=== PATIENT | male | born 1945 | race Caucasian/White ===

== ENCOUNTER → 2019-03-04 | Outpatient (CLI) | payer MEDICARE ==
[~2019-03-04] MED LIST: ADVA1AER2 INH; AMIO200T PO; BISO2.5T PO; CIPR250T2 PO; CIPR500T3 PO; COMBIN INH; DILT180C7 PO; MULTTAB4 PO; OXYC1TAB23 OR; SIMV10TA2 PO; TAMS0.4C PO; XARE20TA PO
--- NOTE | 2019-03-04 16:44 | REP ---
Chest x-ray: Two views. History: COPD. Comparison study: March 14, 2013. 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 There is plate-like atelectasis versus linear fibrosis in the left mid lung zone. This appears to be a new finding from the 2012 study. Lung willis are otherwise clear. The pleural angles are sharp. Heart is not enlarged. There are mild degenerative changes in the thoracic spine. Impression: Linear plate-like atelectasis versus fibrosis on the left. Mild hyperinflation. Otherwise no acute disease. Electronically Signed by Albino Nunes MD 03/04/2019 05:25 P
== END ==
LOC: M SMT 15:05
PROVIDERS: ATTEND Internal Medicine Pulmonary Disease
DX: J44.9 Chronic obstructive pulmonary disease, unspecified (principal)

== ENCOUNTER → 2021-09-27 | Outpatient (CLI) | payer MEDICARE | LOC: M PLARAD 07:43 | PROVIDERS: ATTEND Internal Medicine Cardiovascular Disease | DX: R91.8 Other nonspecific abnormal finding of lung field (principal); I65.23 Occlusion and stenosis of bilateral carotid arteries; J98.4 Other disorders of lung; I70.0 Atherosclerosis of aorta; I25.10 Atherosclerotic heart disease of native coronary artery without angina pectoris; Z95.0 Presence of cardiac pacemaker; K57.90 Diverticulosis of intestine, part unspecified, without perforation or abscess without bleeding | CPT/HCPCS: 78815; A9552 ==

== ENCOUNTER 2022-01-06 11:26 | Inpatient (IN) | payer MEDICARE ==
[~2022-01-06] VITALS: Ht 167.6 cm; Wt 117.5 kg
[2022-01-06 16:38] VITALS: BP 191/91
[2022-01-06] MEDS ORDERED: FUROSEMIDE 40MG/4ML VIAL (J1940) IV ONE (17:20)
[2022-01-06] MEDS ORDERED: ACETAMINOPHEN TAB 650MG DOSE (2X325MG) PO PRN (17:20)
[2022-01-06 17:25] LABS: HEMATOCRIT 37.5 % (42.0-52.0); HEMOGLOBIN 12.8 g/dl (13.5-17.5); MEAN CORPUSCULAR HEMOGLOBIN 31.3 pg (27.0-33.0); MEAN CORPUSCULAR HGB CONC 34.1 g/dl (32.0-36.5); MEAN CORPUSCULAR VOLUME 91.7 fl (80.0-96.0); RED BLOOD COUNT 4.09 10^6/uL (4.30-6.10); WHITE BLOOD COUNT 18.8 10^3/uL (4.0-10.0)
[2022-01-06 17:26] LABS: BASO % 0.1 % (0.0-1.0); LYMPH # 0.4 10^3/uL (1.5-5.0); MONO % 5.4 % (2.0-8.0); NEUTROPHILS # 16.8 10^3/uL (1.5-8.5); NEUTROPHILS % 89.2 % (36.0-66.0); PLATELET COUNT, AUTOMATED 261 10^3/uL (150-450)
[2022-01-06 17:44] LABS: INR 1.54; PROTHROMBIN TIME 18.9 SECONDS (12.7-14.5)
[2022-01-06 17:45] LABS: PARTIAL THROMBOPLASTIN TIME 26.1 SECONDS (25.9-37.0)
[2022-01-06 17:53] LABS: ERYTHROCYTE SEDIMENTATION RATE 5 mm/hr (0-20)
[2022-01-06 18:06] LABS: ALBUMIN 3.3 GM/DL (3.2-5.2); BILIRUBIN,TOTAL 0.9 MG/DL (0.2-1.0); C REACTIVE PROTEIN QUANTITATIV 0.3 MG/DL (0.00-0.30); CALCIUM LEVEL 8.1 MG/DL (8.8-10.2); CREATININE FOR GFR 1.52 MG/DL (0.70-1.30); GLOMERULAR FILTRATION RATE 47.7 (>42); MAGNESIUM LEVEL 2.6 MG/DL (1.8-2.4); THYROID STIMULATING HORMONE 0.174 uIU/ML (0.358-3.740); TOTAL PROTEIN 6.2 GM/DL (6.4-8.2)
[2022-01-06 18:27] LABS: CK-MB VALUE MASS 11.7 NG/ML (<3.6); MB/CK RELATIVE INDEX 0.96 (< OR =4)
[2022-01-06] MEDS: IPRATROPIUM 0.5MG/ALBUTEROL 2.5MG INH SOL UD 3ML (DUONEB) NEB SCH (19:23)
[2022-01-06] MEDS ORDERED: SIMV10TA21 PO (19:43)
[2022-01-06] MEDS ORDERED: METO1TAB33 PO (19:43)
[2022-01-06] MEDS ORDERED: TREL1AER PO (19:43)
[2022-01-06] MEDS ORDERED: XARE20TA PO (19:43)
[2022-01-06] MEDS ORDERED: LEXA1TAB2 PO (19:43)
[2022-01-06] MEDS ORDERED: DILT240C83 PO (19:43)
[2022-01-06] MEDS ORDERED: BREO1INH3 INH (19:47)
[2022-01-06] MEDS ORDERED: TOPR50TA PO (19:51)
[2022-01-06] MEDS ORDERED: HOME MED LIST COMPLETE! XX SCH (19:55)
[2022-01-06 20:00] VITALS: BP 134/81
[2022-01-06 20:28] LABS: HEMOGLOBIN A1c 6.9 %
[2022-01-06] MEDS: methylPREDNISolone 125MG 2ML VIAL IV SCH (20:42)
[2022-01-06] MEDS: PIPERACILLIN/TAZOBACTAM SOD 3.375 GM in D5W MINI-BAG PLUS 50 ML IV SCH (20:43)
[2022-01-06] MEDS ORDERED: METOPROLOL SUCC (TopROL XL) 50MG **XL** TAB PO SCH (21:00)
[2022-01-06] MEDS: ADVAIR HFA 230/21MCG INHALER INH SCH (23:23)
[2022-01-07] VITALS (12 sets, daily range): BP systolic 125–140; BP diastolic 63–85; O2SAT 90–96
[2022-01-07] MEDS: IPRATROPIUM 0.5MG/ALBUTEROL 2.5MG INH SOL UD 3ML (DUONEB) NEB SCH ×4 (01:33→19:13)
[2022-01-07] MEDS: BENZONATATE 100MG CAPSULE PO PRN (02:43)
[2022-01-07] MEDS: methylPREDNISolone 125MG 2ML VIAL IV SCH ×3 (02:44→21:00)
[2022-01-07] MEDS: PIPERACILLIN/TAZOBACTAM SOD 3.375 GM in D5W MINI-BAG PLUS 50 ML IV SCH (02:44)
[2022-01-07 05:48] LABS: HEMATOCRIT 37.6 % (42.0-52.0); HEMOGLOBIN 12.8 g/dl (13.5-17.5); MEAN CORPUSCULAR HEMOGLOBIN 31.2 pg (27.0-33.0); MEAN CORPUSCULAR VOLUME 91.7 fl (80.0-96.0); PLATELET COUNT, AUTOMATED 208 10^3/uL (150-450); WHITE BLOOD COUNT 15.1 10^3/uL (4.0-10.0)
[2022-01-07 06:23] LABS: CALCIUM LEVEL 8.1 MG/DL (8.8-10.2); CREATININE FOR GFR 1.37 MG/DL (0.70-1.30); GLOMERULAR FILTRATION RATE 53.8 (>42); MAGNESIUM LEVEL 2.7 MG/DL (1.8-2.4)
[2022-01-07] MEDS ORDERED: GLUCOSE 4GM CHEW TABLET PO PRN (07:20)
[2022-01-07] MEDS ORDERED: DEXTROSE 50% 50 ML SYRINGE IV PRN (07:20)
[2022-01-07] MEDS ORDERED: GLUCAGON INJ 1MG VIAL SC PRN (07:20)
[2022-01-07] MEDS: ADVAIR HFA 230/21MCG INHALER INH SCH ×2 (07:30→19:12)
[2022-01-07] MEDS: INSULIN LISPRO (NovoLOG) PER UNIT SC SCH ×4 (08:29→20:56)
[2022-01-07] MEDS: RIVAROXABAN 20 MG TAB (XARELTO) PO SCH (08:30)
[2022-01-07] MEDS ORDERED: METOPROLOL TART 25 MG TABLET PO ONE (08:30)
[2022-01-07] MEDS: SIMVASTATIN 10 MG TAB PO SCH (08:30)
[2022-01-07 08:38] LABS: BASO % 0.2 % (0.0-1.0); LYMPH # 0.2 10^3/uL (1.5-5.0); LYMPH % 1.6 % (24.0-44.0); MONO # 0.7 10^3/uL (0.0-0.8); MONO % 4.2 % (2.0-8.0); NEUTROPHILS # 14.1 10^3/uL (1.5-8.5); NEUTROPHILS % 91.8 % (36.0-66.0)
[2022-01-07] MEDS ORDERED: FUROSEMIDE 40MG/4ML VIAL (J1940) IV SCH (09:00)
[2022-01-07 10:48] LABS: ABG HCO3 28.9 MEQ/L (22.0-26.0); ABG O2 SATURATION 92.8 % (95.0-99.0); ABG PARTIAL PRESSURE CO2 36.3 mmHg (35.0-45.0); ABG PARTIAL PRESSURE O2 64.2 mmHg (75.0-100.0); ABG STANDARD HCO3 29.7 MEQ/L (22.0-26.0); ABG pH (ARTERIAL) 7.519 UNITS (7.350-7.450)
[2022-01-07] MEDS: ALBUTEROL SULFATE 2.5 MG/0.5 ML INH NEB SOLN NEB PRN (15:03)
[2022-01-07] MEDS: METOPROLOL TART 25 MG TABLET PO SCH ×2 (17:25→23:25)
[2022-01-08] VITALS (22 sets, daily range): BP systolic 119–168; BP diastolic 60–103; O2SAT 90–94
[2022-01-08] MEDS: IPRATROPIUM 0.5MG/ALBUTEROL 2.5MG INH SOL UD 3ML (DUONEB) NEB SCH ×4 (01:15→19:35)
[2022-01-08] MEDS: ALBUTEROL SULFATE 2.5 MG/0.5 ML INH NEB SOLN NEB PRN (03:40)
[2022-01-08] MEDS: methylPREDNISolone 125MG 2ML VIAL IV SCH ×2 (04:05→12:12)
[2022-01-08] MEDS: METOPROLOL TART 25 MG TABLET PO SCH ×4 (05:24→23:40)
[2022-01-08 06:13] LABS: HEMATOCRIT 36.7 % (42.0-52.0); HEMOGLOBIN 12.3 g/dl (13.5-17.5); MEAN CORPUSCULAR HEMOGLOBIN 31.1 pg (27.0-33.0); MEAN CORPUSCULAR HGB CONC 33.5 g/dl (32.0-36.5); MEAN CORPUSCULAR VOLUME 92.7 fl (80.0-96.0); PLATELET COUNT, AUTOMATED 165 10^3/uL (150-450); RED BLOOD COUNT 3.96 10^6/uL (4.30-6.10); WHITE BLOOD COUNT 15.2 10^3/uL (4.0-10.0)
[2022-01-08 06:45] LABS: ALBUMIN 3.1 GM/DL (3.2-5.2); ALT/SGPT 197 U/L (12-78); BILIRUBIN,DIRECT 0.6 MG/DL (0.0-0.2); BILIRUBIN,TOTAL 1.2 MG/DL (0.2-1.0); BLOOD UREA NITROGEN 38 MG/DL (7-18); CALCIUM LEVEL 8.2 MG/DL (8.8-10.2); CARBON DIOXIDE LEVEL 34 MEQ/L (21-32); CHLORIDE LEVEL 99 MEQ/L (98-107); CREATININE FOR GFR 1.14 MG/DL (0.70-1.30); GLOMERULAR FILTRATION RATE > 60.0 (>42); GLUCOSE, FASTING 215 MG/DL (70-100); MAGNESIUM LEVEL 2.6 MG/DL (1.8-2.4); POTASSIUM SERUM 3.9 MEQ/L (3.5-5.1); SODIUM LEVEL 137 MEQ/L (136-145); TOTAL PROTEIN 5.5 GM/DL (6.4-8.2)
[2022-01-08] MEDS: ADVAIR HFA 230/21MCG INHALER INH SCH ×2 (07:16→19:36)
[2022-01-08 07:30] LABS: BASO % 0.1 % (0.0-1.0); LYMPH # 0.2 10^3/uL (1.5-5.0); LYMPH % 1.1 % (24.0-44.0); MONO # 0.6 10^3/uL (0.0-0.8); MONO % 3.6 % (2.0-8.0); NEUTROPHILS # 14.3 10^3/uL (1.5-8.5); NEUTROPHILS % 93.6 % (36.0-66.0)
[2022-01-08] MEDS: INSULIN LISPRO (NovoLOG) PER UNIT SC SCH ×4 (08:46→21:00)
[2022-01-08] MEDS: RIVAROXABAN 20 MG TAB (XARELTO) PO SCH (08:47)
[2022-01-08] MEDS: SIMVASTATIN 10 MG TAB PO SCH (08:47)
[2022-01-08 17:07] LABS: MYCOPLASMA PNEUMONIAE IgG 440 U/mL (0-99); MYCOPLASMA PNEUMONIAE IgM <770 U/mL (0-769)
[2022-01-08] MEDS: MAGIC MOUTHWASH SUSPENSION BTL SS PRN (17:55)
[2022-01-08] MEDS: methylPREDNISolone 40MG 1ML VIAL IV SCH (23:40)
[2022-01-09] VITALS (16 sets, daily range): BP systolic 127–174; BP diastolic 63–92; O2SAT 88–96
[2022-01-09] MEDS: IPRATROPIUM 0.5MG/ALBUTEROL 2.5MG INH SOL UD 3ML (DUONEB) NEB SCH ×4 (01:42→19:44)
[2022-01-09] MEDS: METOPROLOL TART 25 MG TABLET PO SCH ×3 (05:31→17:14)
[2022-01-09] MEDS: MAGIC MOUTHWASH SUSPENSION BTL SS PRN (05:36)
[2022-01-09 06:16] LABS: HEMATOCRIT 36.7 % (42.0-52.0); HEMOGLOBIN 12.2 g/dl (13.5-17.5); MEAN CORPUSCULAR HEMOGLOBIN 30.7 pg (27.0-33.0); MEAN CORPUSCULAR HGB CONC 33.2 g/dl (32.0-36.5); MEAN CORPUSCULAR VOLUME 92.4 fl (80.0-96.0); PLATELET COUNT, AUTOMATED 153 10^3/uL (150-450); RED BLOOD COUNT 3.97 10^6/uL (4.30-6.10); WHITE BLOOD COUNT 24.3 10^3/uL (4.0-10.0)
[2022-01-09 06:42] LABS: BLOOD UREA NITROGEN 37 MG/DL (7-18); CALCIUM LEVEL 8.9 MG/DL (8.8-10.2); CARBON DIOXIDE LEVEL 31 MEQ/L (21-32); CHLORIDE LEVEL 102 MEQ/L (98-107); CREATININE FOR GFR 1.15 MG/DL (0.70-1.30); GLOMERULAR FILTRATION RATE > 60.0 (>42); GLUCOSE, FASTING 235 MG/DL (70-100); MAGNESIUM LEVEL 2.6 MG/DL (1.8-2.4); POTASSIUM SERUM 4.5 MEQ/L (3.5-5.1); SODIUM LEVEL 139 MEQ/L (136-145)
[2022-01-09] MEDS: INSULIN LISPRO (NovoLOG) PER UNIT SC SCH ×4 (07:37→20:03)
[2022-01-09] MEDS: ADVAIR HFA 230/21MCG INHALER INH SCH ×2 (07:46→19:43)
[2022-01-09] MEDS: RIVAROXABAN 20 MG TAB (XARELTO) PO SCH (09:19)
[2022-01-09] MEDS: SIMVASTATIN 10 MG TAB PO SCH (09:19)
[2022-01-09] MEDS ORDERED: FUROSEMIDE 20MG/2ML VIAL (J1940) IV ONE (09:55)
[2022-01-09] MEDS: methylPREDNISolone 40MG 1ML VIAL IV SCH (11:25)
[2022-01-10] VITALS (18 sets, daily range): BP systolic 118–142; BP diastolic 69–92; O2SAT 89–100
[2022-01-10] MEDS: METOPROLOL TART 25 MG TABLET PO SCH ×5 (00:09→23:43)
[2022-01-10] MEDS: BENZONATATE 100MG CAPSULE PO PRN (00:09)
[2022-01-10] MEDS: IPRATROPIUM 0.5MG/ALBUTEROL 2.5MG INH SOL UD 3ML (DUONEB) NEB SCH ×4 (02:37→19:53)
[2022-01-10 06:23] LABS: HEMATOCRIT 34.3 % (42.0-52.0); HEMOGLOBIN 11.4 g/dl (13.5-17.5); MEAN CORPUSCULAR HEMOGLOBIN 31.7 pg (27.0-33.0); MEAN CORPUSCULAR HGB CONC 33.2 g/dl (32.0-36.5); MEAN CORPUSCULAR VOLUME 95.3 fl (80.0-96.0); PLATELET COUNT, AUTOMATED 150 10^3/uL (150-450)
[2022-01-10 06:26] LABS: WHITE BLOOD COUNT 30.9 10^3/uL (4.0-10.0)
[2022-01-10 06:43] LABS: BLOOD UREA NITROGEN 34 MG/DL (7-18); CALCIUM LEVEL 8.5 MG/DL (8.8-10.2); CARBON DIOXIDE LEVEL 35 MEQ/L (21-32); CHLORIDE LEVEL 100 MEQ/L (98-107); CREATININE FOR GFR 1.12 MG/DL (0.70-1.30); GLOMERULAR FILTRATION RATE > 60.0 (>42); GLUCOSE, FASTING 214 MG/DL (70-100); MAGNESIUM LEVEL 2.3 MG/DL (1.8-2.4); POTASSIUM SERUM 4.4 MEQ/L (3.5-5.1); SODIUM LEVEL 136 MEQ/L (136-145)
[2022-01-10 07:37] LABS: BASO # 0.1 10^3/uL (0.0-0.2); BASO % 0.2 % (0.0-1.0); LYMPH # 0.5 10^3/uL (1.5-5.0); LYMPH % 1.6 % (24.0-44.0); MONO # 1.2 10^3/uL (0.0-0.8); MONO % 3.7 % (2.0-8.0); NEUTROPHILS # 28.7 10^3/uL (1.5-8.5); NEUTROPHILS % 92.7 % (36.0-66.0)
[2022-01-10] MEDS: RIVAROXABAN 20 MG TAB (XARELTO) PO SCH (08:25)
[2022-01-10] MEDS: SIMVASTATIN 10 MG TAB PO SCH (08:25)
[2022-01-10] MEDS: predniSONE 20 MG TAB PO SCH (08:25)
[2022-01-10] MEDS: INSULIN LISPRO (NovoLOG) PER UNIT SC SCH ×4 (08:26→20:21)
[2022-01-10] MEDS: DOCUSATE SODIUM 100MG CAPSULE PO PRN (08:26)
[2022-01-10] MEDS: ADVAIR HFA 230/21MCG INHALER INH SCH ×2 (08:28→19:54)
[2022-01-10] MEDS ORDERED: ISOVUE-370 76% 100ML VIAL As Ordered ONE (09:13)
[2022-01-10] MEDS: PIPERACILLIN/TAZOBACTAM SOD 4.5 GM in D5W MINI-BAG PLUS 50 ML IV SCH ×3 (13:45→23:43)
[2022-01-10 16:10] LABS: CHLAMYDIA PNEUMONIAE IgM <1:10 (Neg:<1:10)
[2022-01-10] MEDS ORDERED: NYSTATIN 500,000 U/5 ML SUSP UDC SS SCH (18:00)
[2022-01-11] VITALS (24 sets, daily range): BP systolic 97–149; BP diastolic 63–77; O2SAT 86–96
[2022-01-11] MEDS: IPRATROPIUM 0.5MG/ALBUTEROL 2.5MG INH SOL UD 3ML (DUONEB) NEB SCH ×4 (00:57→20:00)
[2022-01-11] MEDS: DOCUSATE SODIUM 100MG CAPSULE PO PRN (03:56)
[2022-01-11] MEDS: ALBUTEROL SULFATE 2.5 MG/0.5 ML INH NEB SOLN NEB PRN (04:29)
[2022-01-11] MEDS: PIPERACILLIN/TAZOBACTAM SOD 4.5 GM in D5W MINI-BAG PLUS 50 ML IV SCH (05:35)
[2022-01-11] MEDS: METOPROLOL TART 25 MG TABLET PO SCH ×2 (05:35→11:44)
[2022-01-11 06:27] LABS: HEMATOCRIT 30.1 % (42.0-52.0); MEAN CORPUSCULAR HEMOGLOBIN 31.7 pg (27.0-33.0); MEAN CORPUSCULAR HGB CONC 33.2 g/dl (32.0-36.5); MEAN CORPUSCULAR VOLUME 95.6 fl (80.0-96.0); PLATELET COUNT, AUTOMATED 128 10^3/uL (150-450); RED BLOOD COUNT 3.15 10^6/uL (4.30-6.10); WHITE BLOOD COUNT 22.2 10^3/uL (4.0-10.0)
[2022-01-11 06:43] LABS: BLOOD UREA NITROGEN 41 MG/DL (7-18); CALCIUM LEVEL 8.3 MG/DL (8.8-10.2); CARBON DIOXIDE LEVEL 34 MEQ/L (21-32); CHLORIDE LEVEL 100 MEQ/L (98-107); CREATININE FOR GFR 1.16 MG/DL (0.70-1.30); GLOMERULAR FILTRATION RATE > 60.0 (>42); GLUCOSE, FASTING 190 MG/DL (70-100); MAGNESIUM LEVEL 2.2 MG/DL (1.8-2.4); SODIUM LEVEL 140 MEQ/L (136-145)
[2022-01-11 08:03] LABS: BASO % 0.1 % (0.0-1.0); EOS % 0.1 % (0.0-3.0); LYMPH # 0.4 10^3/uL (1.5-5.0); MONO % 4.4 % (2.0-8.0); NEUTROPHILS # 20.2 10^3/uL (1.5-8.5); NEUTROPHILS % 91.9 % (36.0-66.0)
[2022-01-11 08:05] LABS: PLATELET ESTIMATE NORMAL (NORMAL)
[2022-01-11] MEDS: ADVAIR HFA 230/21MCG INHALER INH SCH ×2 (08:41→20:15)
[2022-01-11] MEDS: predniSONE 20 MG TAB PO SCH (09:00)
[2022-01-11] MEDS: SIMVASTATIN 10 MG TAB PO SCH (09:00)
[2022-01-11] MEDS: INSULIN LISPRO (NovoLOG) PER UNIT SC SCH ×4 (09:01→20:27)
[2022-01-11] MEDS ORDERED: FUROSEMIDE 20MG/2ML VIAL (J1940) IV ONE (11:00)
[2022-01-11] MEDS: AUGMENTIN 500 MG TAB PO SCH ×3 (11:00→20:34)
[2022-01-11] MEDS: METOPROLOL TART 50 MG TAB PO SCH (20:27)
[2022-01-12] VITALS (15 sets, daily range): BP systolic 114–136; BP diastolic 66–72; O2SAT 89–98
[2022-01-12] MEDS: IPRATROPIUM 0.5MG/ALBUTEROL 2.5MG INH SOL UD 3ML (DUONEB) NEB SCH ×4 (01:52→20:10)
[2022-01-12] MEDS: ADVAIR HFA 230/21MCG INHALER INH SCH ×2 (07:22→20:11)
[2022-01-12] MEDS: INSULIN LISPRO (NovoLOG) PER UNIT SC SCH ×4 (08:42→20:37)
[2022-01-12] MEDS: ESCITALOPRAM OXALATE 10 MG TAB (LEXAPRO) PO SCH (08:42)
[2022-01-12] MEDS: predniSONE 20 MG TAB PO SCH (08:42)
[2022-01-12] MEDS: AUGMENTIN 500 MG TAB PO SCH ×3 (08:42→20:36)
[2022-01-12] MEDS: SIMVASTATIN 10 MG TAB PO SCH (08:42)
[2022-01-12] MEDS: METOPROLOL TART 50 MG TAB PO SCH ×2 (08:43→20:39)
[2022-01-12 11:10] LABS: HEMATOCRIT 26.5 % (42.0-52.0); HEMOGLOBIN 8.9 g/dl (13.5-17.5); MEAN CORPUSCULAR HEMOGLOBIN 32.1 pg (27.0-33.0); MEAN CORPUSCULAR HGB CONC 33.6 g/dl (32.0-36.5); MEAN CORPUSCULAR VOLUME 95.7 fl (80.0-96.0); PLATELET COUNT, AUTOMATED 110 10^3/uL (150-450); RED BLOOD COUNT 2.77 10^6/uL (4.30-6.10); WHITE BLOOD COUNT 19.1 10^3/uL (4.0-10.0)
[2022-01-12 11:53] LABS: CALCIUM LEVEL 8.4 MG/DL (8.8-10.2); CREATININE FOR GFR 1.29 MG/DL (0.70-1.30); GLOMERULAR FILTRATION RATE 57.6 (>42); MAGNESIUM LEVEL 2.2 MG/DL (1.8-2.4); POTASSIUM SERUM 4.1 MEQ/L (3.5-5.1)
[2022-01-12] MEDS: BENZONATATE 100MG CAPSULE PO PRN (12:56)
[2022-01-12] MEDS: DOCUSATE SODIUM 100MG CAPSULE PO PRN (12:56)
[2022-01-12] MEDS ORDERED: TORSEMIDE 20 MG TAB PO ONE (22:10)
[2022-01-13] VITALS (13 sets, daily range): BP systolic 116–139; BP diastolic 56–70; O2SAT 91–99
[2022-01-13 00:13] LABS: HEMATOCRIT 25.6 % (42.0-52.0); HEMOGLOBIN 8.5 g/dl (13.5-17.5)
[2022-01-13] MEDS: IPRATROPIUM 0.5MG/ALBUTEROL 2.5MG INH SOL UD 3ML (DUONEB) NEB SCH ×4 (01:07→19:50)
[2022-01-13 05:30] LABS: HEMATOCRIT 26.7 % (42.0-52.0); HEMOGLOBIN 8.9 g/dl (13.5-17.5); MEAN CORPUSCULAR HEMOGLOBIN 31.6 pg (27.0-33.0); MEAN CORPUSCULAR HGB CONC 33.3 g/dl (32.0-36.5); MEAN CORPUSCULAR VOLUME 94.7 fl (80.0-96.0); PLATELET COUNT, AUTOMATED 115 10^3/uL (150-450); RED BLOOD COUNT 2.82 10^6/uL (4.30-6.10); WHITE BLOOD COUNT 16.3 10^3/uL (4.0-10.0)
[2022-01-13 06:00] LABS: BLOOD UREA NITROGEN 28 MG/DL (7-18); CALCIUM LEVEL 8.2 MG/DL (8.8-10.2); CARBON DIOXIDE LEVEL 37 MEQ/L (21-32); CHLORIDE LEVEL 98 MEQ/L (98-107); CREATININE FOR GFR 1.19 MG/DL (0.70-1.30); GLOMERULAR FILTRATION RATE > 60.0 (>42); GLUCOSE, FASTING 167 MG/DL (70-100); MAGNESIUM LEVEL 1.9 MG/DL (1.8-2.4); POTASSIUM SERUM 3.5 MEQ/L (3.5-5.1); SODIUM LEVEL 138 MEQ/L (136-145)
[2022-01-13] MEDS: METOPROLOL TART 50 MG TAB PO SCH ×2 (07:52→20:41)
[2022-01-13] MEDS: INSULIN LISPRO (NovoLOG) PER UNIT SC SCH ×4 (07:52→20:35)
[2022-01-13] MEDS: AUGMENTIN 500 MG TAB PO SCH ×3 (07:52→20:41)
[2022-01-13] MEDS: SIMVASTATIN 10 MG TAB PO SCH (07:53)
[2022-01-13] MEDS: TORSEMIDE 20 MG TAB PO SCH (07:53)
[2022-01-13] MEDS: predniSONE 20 MG TAB PO SCH (07:53)
[2022-01-13] MEDS: ESCITALOPRAM OXALATE 10 MG TAB (LEXAPRO) PO SCH (07:53)
[2022-01-13] MEDS: ADVAIR HFA 230/21MCG INHALER INH SCH ×2 (07:57→19:51)
[2022-01-13] MEDS: DOCUSATE SODIUM 100MG CAPSULE PO PRN (10:16)
[2022-01-13] MEDS ORDERED: AMOX500T2 PO (11:29)
[2022-01-13] MEDS ORDERED: COLA100C5 PO (11:29)
[2022-01-13] MEDS ORDERED: PRED10TA2 PO (11:29)
[2022-01-13] MEDS ORDERED: TORS20TA2 PO (11:29)
[2022-01-13] MEDS ORDERED: BENZ-18 PO (11:29)
[2022-01-13] MEDS ORDERED: LOPR1TAB6 PO (11:29)
[2022-01-13] MEDS ORDERED: METF500T13 PO (11:36)
[2022-01-13] MEDS ORDERED: CARE1KIT XX (11:36)
[2022-01-13] MEDS ORDERED: LANC1COM MC (11:36)
[2022-01-13] MEDS ORDERED: POTASSIUM CHLORIDE 10MEQ SR TABLET PO ONE (12:00)
[2022-01-13 16:43] LABS: CK-MB VALUE MASS 2.8 NG/ML (<3.6); MB/CK RELATIVE INDEX 1.17 (< OR =4)
[2022-01-13] MEDS: CEPACOL LOZENGE PO PRN (18:09)
[2022-01-13 19:22] LABS: CK-MB VALUE MASS 2.7 NG/ML (<3.6); MB/CK RELATIVE INDEX 1.25 (< OR =4)
[2022-01-13] MEDS: BENZONATATE 100MG CAPSULE PO PRN (20:41)
[2022-01-13 22:25] LABS: CK-MB VALUE MASS 2.3 NG/ML (<3.6)
[2022-01-14] VITALS (8 sets, daily range): BP systolic 111–136; BP diastolic 54–72; O2SAT 91–96
[2022-01-14] MEDS: IPRATROPIUM 0.5MG/ALBUTEROL 2.5MG INH SOL UD 3ML (DUONEB) NEB SCH ×3 (02:44→13:52)
[2022-01-14] MEDS: ADVAIR HFA 230/21MCG INHALER INH SCH (07:33)
[2022-01-14] MEDS: AUGMENTIN 500 MG TAB PO SCH (08:19)
[2022-01-14] MEDS: predniSONE 20 MG TAB PO SCH (08:20)
[2022-01-14] MEDS: ESCITALOPRAM OXALATE 10 MG TAB (LEXAPRO) PO SCH (08:20)
[2022-01-14] MEDS: TORSEMIDE 20 MG TAB PO SCH (08:20)
[2022-01-14] MEDS: SIMVASTATIN 10 MG TAB PO SCH (08:20)
[2022-01-14] MEDS: METOPROLOL TART 50 MG TAB PO SCH (08:21)
[2022-01-14 08:22] LABS: BASO % 0.1 % (0.0-1.0); EOS % 0.3 % (0.0-3.0); HEMATOCRIT 25.5 % (42.0-52.0); HEMOGLOBIN 8.4 g/dl (13.5-17.5); LYMPH # 0.6 10^3/uL (1.5-5.0); LYMPH % 4.6 % (24.0-44.0); MEAN CORPUSCULAR HEMOGLOBIN 31.5 pg (27.0-33.0); MEAN CORPUSCULAR HGB CONC 32.9 g/dl (32.0-36.5); MEAN CORPUSCULAR VOLUME 95.5 fl (80.0-96.0); MONO # 0.5 10^3/uL (0.0-0.8); MONO % 3.9 % (2.0-8.0); NEUTROPHILS # 11.8 10^3/uL (1.5-8.5); NEUTROPHILS % 89.7 % (36.0-66.0); PLATELET COUNT, AUTOMATED 105 10^3/uL (150-450); RED BLOOD COUNT 2.67 10^6/uL (4.30-6.10); WHITE BLOOD COUNT 13.2 10^3/uL (4.0-10.0)
[2022-01-14 09:03] LABS: BLOOD UREA NITROGEN 28 MG/DL (7-18); CALCIUM LEVEL 8.4 MG/DL (8.8-10.2); CARBON DIOXIDE LEVEL 32 MEQ/L (21-32); CHLORIDE LEVEL 100 MEQ/L (98-107); CREATININE FOR GFR 1.14 MG/DL (0.70-1.30); GLOMERULAR FILTRATION RATE > 60.0 (>42); GLUCOSE, FASTING 153 MG/DL (70-100); MAGNESIUM LEVEL 2.2 MG/DL (1.8-2.4); POTASSIUM SERUM 3.4 MEQ/L (3.5-5.1); SODIUM LEVEL 140 MEQ/L (136-145)
[2022-01-14] MEDS: INSULIN LISPRO (NovoLOG) PER UNIT SC SCH ×2 (09:21→11:55)
[2022-01-14] MEDS: CEPACOL LOZENGE PO PRN (09:21)
[2022-01-14] MEDS ORDERED: PANTOPRAZOLE 40MG TAB (PROTONIX) PO SCH (10:00)
[2022-01-14] MEDS: DOCUSATE SODIUM 100MG CAPSULE PO PRN (10:21)
[2022-01-14] MEDS ORDERED: POTASSIUM CHLORIDE 10% LIQ 20 MEQ/15 ML UDC PO ONE (10:30)
[2022-01-14] MEDS: MAGIC MOUTHWASH SUSPENSION BTL SS PRN (11:55)
[2022-01-14] MEDS ORDERED: VARIBAR PUDDING 40% w/v 230ML TUBE As Ordered ONE (12:10)
[2022-01-14] MEDS ORDERED: BARIUM SULFATE 700 MG TABLET (E-Z-DISK) As Ordered ONE (12:11)
[2022-01-14] MEDS ORDERED: VARIBAR NECTAR 40% w/v 240ML SUSP BTL As Ordered ONE (12:11)
[2022-01-14] MEDS ORDERED: E-Z-PAQUE 96% w/w SUSP 176GM BTL As Ordered ONE (12:11)
[2022-01-14] MEDS ORDERED: SORE15LO PO (13:32)
[2022-01-14] MEDS ORDERED: MAGICMW SS (13:32)
[2022-01-14] MEDS ORDERED: PANT40TA29 PO (13:32)
[2022-01-14] MEDS ORDERED: AMOX500T2 PO (13:33)
[2022-01-15] MEDS ORDERED: predniSONE 10 MG TAB PO SCH (09:00)
[2022-01-18] MEDS ORDERED: predniSONE 20 MG TAB PO SCH (09:00)
[2022-01-21] MEDS ORDERED: predniSONE 10 MG TAB PO SCH (09:00)
== END 2022-01-14 16:20 | disposition home health service (06) | DRG 865 ==
LOC: M PCU 16:30
PROVIDERS: ADMIT General Practice; ATTEND Family Medicine
PROC: B246ZZZ Ultrasonography of Right and Left Heart (ICD-10-PCS; principal; 2022-01-07)
DX: B34.8 Other viral infections of unspecified site (principal); J18.9 Pneumonia, unspecified organism; I48.20 Chronic atrial fibrillation, unspecified; J96.11 Chronic respiratory failure with hypoxia; E87.4 Mixed disorder of acid-base balance; E87.2 Acidosis; J44.1 Chronic obstructive pulmonary disease with (acute) exacerbation; E87.3 Alkalosis; E87.70 Fluid overload, unspecified; R91.8 Other nonspecific abnormal finding of lung field; R94.5 Abnormal results of liver function studies; Z95.0 Presence of cardiac pacemaker; Z79.01 Long term (current) use of anticoagulants; E78.5 Hyperlipidemia, unspecified; Z87.891 Personal history of nicotine dependence; E11.9 Type 2 diabetes mellitus without complications; G47.33 Obstructive sleep apnea (adult) (pediatric); I27.29 Other secondary pulmonary hypertension; K74.60 Unspecified cirrhosis of liver; I25.10 Atherosclerotic heart disease of native coronary artery without angina pectoris; R91.1 Solitary pulmonary nodule; R07.89 Other chest pain; I50.811 Acute right heart failure; K76.0 Fatty (change of) liver, not elsewhere classified; K59.00 Constipation, unspecified; I11.0 Hypertensive heart disease with heart failure

== ENCOUNTER → 2022-03-11 | Outpatient (CLI) | payer MEDICARE ==
[~2022-03-11] MED LIST changes: +AMOX500T2 PO; +BENZ-18 PO; +BREO1INH3 INH; +CARE1KIT XX; +COLA100C5 PO; +DILT240C83 PO; +LANC1COM MC; +LEXA1TAB2 PO; +LOPR1TAB6 PO; +MAGICMW SS; +METF500T13 PO; +METO1TAB33 PO; +PANT40TA29 PO; +PRED10TA2 PO; +SIMV10TA21 PO; +SORE15LO PO; +TOPR50TA PO; +TORS20TA2 PO; +TREL1AER PO
== END ==
LOC: M PLAIMG 11:17
PROVIDERS: ATTEND Internal Medicine Pulmonary Disease
DX: R91.8 Other nonspecific abnormal finding of lung field (principal); I25.10 Atherosclerotic heart disease of native coronary artery without angina pectoris

== ENCOUNTER → 2022-08-12 | Outpatient (CLI) | payer MEDICARE ==
[~2022-08-12] MED LIST changes: +BENZ1LOZ2 PO; +E-Z-GAS II EFFERVESCENT PACKET (SODIUM BICARB./CITRIC ACID/SIMETHICONE) As Ordered ONE; +E-Z-HD 98% w/w 340GM SUSP BTL As Ordered ONE; +E-Z-PAQUE 96% w/w SUSP 176GM BTL As Ordered ONE; -SORE15LO PO
== END ==
LOC: M RAD 08:00
PROVIDERS: ATTEND Otolaryngology
DX: K21.9 Gastro-esophageal reflux disease without esophagitis (principal); T17.320A Food in larynx causing asphyxiation, initial encounter; J38.1 Polyp of vocal cord and larynx

== ENCOUNTER → 2023-01-24 | Outpatient (CLI) | payer MEDICARE ==
[~2023-01-24] MED LIST changes: -E-Z-GAS II EFFERVESCENT PACKET (SODIUM BICARB./CITRIC ACID/SIMETHICONE) As Ordered ONE; -E-Z-HD 98% w/w 340GM SUSP BTL As Ordered ONE; -E-Z-PAQUE 96% w/w SUSP 176GM BTL As Ordered ONE
== END ==
LOC: M PLAIMG 13:30
PROVIDERS: ATTEND Internal Medicine Pulmonary Disease
DX: R91.8 Other nonspecific abnormal finding of lung field (principal)

== ENCOUNTER → 2023-09-12 | Outpatient (CLI) | payer MEDICARE ==
[~2023-09-12] MED LIST changes: -BENZ1LOZ2 PO; +SORE15LO PO
== END ==
LOC: M PLAIMG 13:17
PROVIDERS: ATTEND Internal Medicine Pulmonary Disease
DX: R91.8 Other nonspecific abnormal finding of lung field (principal)

== ENCOUNTER → 2024-05-06 | Outpatient (CLI) | payer MEDICARE | LOC: M PLAIMG 08:09 | PROVIDERS: ATTEND Internal Medicine Cardiovascular Disease | DX: I08.3 Combined rheumatic disorders of mitral, aortic and tricuspid valves (principal); I50.32 Chronic diastolic (congestive) heart failure; I27.23 Pulmonary hypertension due to lung diseases and hypoxia ==

== ENCOUNTER → 2024-10-28 | Outpatient (CLI) | payer MEDICARE | LOC: M PLAIMG 13:36 | PROVIDERS: ATTEND Internal Medicine Pulmonary Disease | DX: R91.8 Other nonspecific abnormal finding of lung field (principal); J47.9 Bronchiectasis, uncomplicated; J98.4 Other disorders of lung ==

== ENCOUNTER → 2024-11-13 | Outpatient (CLI) | payer MEDICARE | LOC: M CARPUL 16:42 | PROVIDERS: ATTEND Registered Nurse | DX: I35.0 Nonrheumatic aortic (valve) stenosis (principal) ==

== ENCOUNTER → 2025-03-19 | Outpatient (CLI) | payer MEDICARE | LOC: M CARPUL 15:54 | PROVIDERS: ATTEND Registered Nurse | DX: I35.0 Nonrheumatic aortic (valve) stenosis (principal); I50.32 Chronic diastolic (congestive) heart failure; R06.02 Shortness of breath ==